=== PATIENT | male | born 1980 | race Caucasian/White ===

== ENCOUNTER 2018-09-14 11:25 | Emergency (ER) | payer MEDICAID, OTHER ==
[~2018-09-14] VITALS: Ht 172.7 cm; Wt 95.3 kg
[2018-09-14] MEDS: TETANUS-DIPTH-ACEL PERTUSSIS 0.5ML SYRG IM ONE (12:14)
[2018-09-14] MEDS: ceFAZolin 1GM/50ML 50 ML IV ONE (12:23)
[2018-09-14] MEDS: NEOMYCIN-BACITRACIN-POLYM UNITDOSE PKG TOP OINT TOP ONE (13:09)
[2018-09-14] MEDS: LIDOCAINE 1% (LOCAL ANESTH.) PF 5ml SDV ID ONE (13:09)
[2018-09-14] MEDS: HYDROmorphone HCL 2 MG/ML VL IV ONE (14:18)
[2018-09-14] MEDS: ONDANSETRON HCL 4 MG/2 ML VIAL IV ONE (14:18)
[2018-09-14 14:49] VITALS: BP 134/77
== END 2018-09-14 15:26 | disposition short-term general hospital (02) ==
LOC: ER 11:28
CPT/HCPCS: 12002 ×2; 29125 ×2; 73130 ×2; 90471 ×2; 90715 ×2; 96365 ×2; 96375 ×2; 99285; J0690 ×2; J1170; J2405 ×2